=== PATIENT | female | born 1960 | race Asian ===

== ENCOUNTER 2016-02-19 09:14 | Day surgery (SDC) | payer OTHER ==
[~2016-02-19] VITALS: Ht 167.6 cm; Wt 72.8 kg
[2016-02-19 10:14] VITALS: Ht 167.6 cm; Wt 72.8 kg
[2016-02-19] MEDS ORDERED: LISINOPRIL (10:14)
[2016-02-19] MEDS ORDERED: METFORMIN (10:14)
[2016-02-19] MEDS ORDERED: CHOLESTEROL MED (10:14)
[2016-02-19 10:33] VITALS: BP 127/76; PULSE 96; RESP 20
[2016-02-19] MEDS ORDERED: FENTAnyl 50 MCG/ML VIAL ONE (11:07)
[2016-02-19] MEDS ORDERED: MIDAZOLAM 1 MG/ML 2 ML INJ ONE ×2 (11:07)
--- NOTE | 2016-02-19 14:23 | GILP ---
DATE OF PROCEDURE: 02/19/2016 NAME OF PROCEDURE: Colonoscopy. SURGEON: Iggy Hoffman MD PREOPERATIVE DIAGNOSIS: Screening colonoscopy. POSTOPERATIVE DIAGNOSES: 1. Colonoscopy all the way to the cecum. 2. Diverticulosis of the colon. 3. Internal hemorrhoids. 4. No colon neoplasm was identified. INDICATION FOR THE PROCEDURE: Ms. Kelly Garza is a 55-year-old female patient who was schedu led for screening colonoscopy. The procedure and possible complications are well explained to the patient, she understood and conse nted to the procedure. DESCRIPTION OF PROCEDURE: Under the influence of fentanyl and Versed, the colonoscope was carefully introduced in the rectum and under direct vision, it was advanced all the way to the cecum. FINDINGS: The patient had diverticulosis of the colon. She also had internal hemorrhoids. No colo n neoplasm was identified. She tolerated the procedure very well and there was no complication from the procedure. At the end of the procedure, she was awake with stable vital signs and she was discharged home to the care of h er family. IMPRESSION: 1. Colonoscopy all the way to the cecum. 2. Diverticulosis of the colon. 3. Internal hemorrhoids. 4. No colon neoplasm was identified. PLAN: Next screening colonoscopy in 10 years. Dictated By: IGGY RIVERA/JOSÉ Conf#: [id number] DID#: [id number] CC: IGGY HOFFMAN MD;*EndCC*
== END 2016-02-19 12:06 | disposition home or self-care (01) ==
LOC: GIL 09:14
PROVIDERS: ATTEND Internal Medicine Gastroenterology
DX: Z12.11 Encounter for screening for malignant neoplasm of colon (principal); K57.90 Diverticulosis of intestine, part unspecified, without perforation or abscess without bleeding; K64.8 Other hemorrhoids; E11.9 Type 2 diabetes mellitus without complications; I10 Essential (primary) hypertension
CPT/HCPCS: 45378; 82962; J2250; J3010